=== PATIENT | male | born 1980 ===

== ENCOUNTER → 2019-11-12 | Outpatient (CLI) | payer OTHER | END | disposition home or self-care (01) | LOC: OFIC 805 09:16 | DX: D17.0 Benign lipomatous neoplasm of skin and subcutaneous tissue of head, face and neck (principal) ==

== ENCOUNTER 2019-11-21 07:20 | Outpatient (CLI) | payer OTHER | END 2019-11-21 07:21 | disposition home or self-care (01) | LOC: TOM 07:20 | PROVIDERS: ATTEND Otolaryngology | DX: D17.0 Benign lipomatous neoplasm of skin and subcutaneous tissue of head, face and neck (principal) | CPT/HCPCS: 70491; Q9965 ==